=== PATIENT | female | born 1965 | race African-American/Black ===

== ENCOUNTER 2017-04-11 17:47 | Emergency (ER) | payer OTHER ==
[~2017-04-11 17:47] MED LIST: HYDROCHLOROTHIA25 MG PO; IRON1 TA1 PO; IRON1 TAB PO; LISINOPRIL-HCTZ1 T14 PO; LORTAB 7.51 TAB DOB; MULTIVITAMIN1 UDCAP PO; PHENERGAN25 M1 DOB; TOPROL XL50 MG PO
== END 2017-04-11 20:18 | disposition home or self-care (01) ==
LOC: SED 17:47
DX: M54.41 Lumbago with sciatica, right side (principal); I10 Essential (primary) hypertension; Z79.899 Other long term (current) drug therapy
CPT/HCPCS: 99283